=== PATIENT | female | born 1995 | race Caucasian/White ===

== ENCOUNTER → 2020-02-08 10:02 | Outpatient (BNVA) | payer OTHER, SELFPAY | PROVIDERS: Family Provider Family Medicine; PCP Family Medicine; Visit Provider Nurse Practitioner Family | DX: Z11.59 Encounter for screening for other viral diseases (principal) | CPT/HCPCS: 87635 ==

== ENCOUNTER → 2020-05-15 13:27 | Outpatient (BNVA) | payer OTHER, SELFPAY | PROVIDERS: Family Provider Family Medicine; Visit Provider Obstetrics & Gynecology | DX: Z32.01 Encounter for pregnancy test, result positive (principal) | CPT/HCPCS: 81025 ==

== ENCOUNTER → 2020-06-27 11:12 | Outpatient (BNVA) | payer OTHER, SELFPAY | PROVIDERS: Family Provider Family Medicine; Visit Provider Obstetrics & Gynecology | DX: O21.9 Vomiting of pregnancy, unspecified (principal); O99.210 Obesity complicating pregnancy, unspecified trimester; E66.9 Obesity, unspecified; Z3A.00 Weeks of gestation of pregnancy not specified | CPT/HCPCS: 80307; 82950; 84315; 84443; 85027; 86592; 86762; 86803; 86850; 86900; 87077; 87086; 87184; 87340; 87491; 87591; 87806; 88175 ==

== ENCOUNTER 2020-08-18 13:54 | Outpatient (CLI) | payer OTHER, SELFPAY ==
[2020-08-18] VITALS (9 sets, daily range): BP systolic 118–167; BP diastolic 72–94; PULSE 74–97; RESP 18; TEMP 36.7; BMI 42.0
--- NOTE | 2020-08-18 14:18 | US_ITS ---
WS: [id number] ULTRASOUND EARLY TECHNIQUE: Transabdominal sonography of the pelvis was performed. CLINICAL INFORMATION: cervical length LMP: 03/29/2020 Beta hCG: Unknown. COMPARISON: August 17, 2020 FINDINGS: Cervix is open and dilated today. This is progressed since yesterday. Dilated internal cerv ical os measures 1.9 CM in width. Dilated endocervical canal measures 4.9 cm in width. Single live intrauterine gestation with transverse presentation US/US OB limited [id number] IMPRESSION: 1. Progression of the cervical dilatation today with opening of the internal c ervical os and significant dilatation of the endocervical canal. 2. Single live intrauterine gestation with transverse presentation.
--- NOTE | 2020-08-18 15:57 | P.HP_ITS ---
Providers/Chief Complaint Chief Complaint: Abdominal pain HPI RESEARCH AND DEVELOPMENT MANAGER History of Present Illness Neelima Ramirez is a 25 year old G1Po female at 20 2/7 weeks who presents for feeling a bulge in her vagina when she used the bathroom. She cam immediately to the hospital. She had an ultrasound which showed her cervix to be dilated to 2 internally and 5 externally with a funneled cervix. Her has only been complicated by morbid obesity. She had an ultrasound yesterday and she was not dilated. Present Details : 1 Para: 0 Review of Systems General: Reports: 10 or more systems reviewed and unremarkable except in HPI and below Medications/Allergies Home Medications Medication Instructions Recorded Confirmed Last Taken Type prenat.vits,darling,mig-bupm-snodx 1 tab PO DAILY 05/26/20 07/26/20 Unknown History famotidine 20 mg tablet 20 mg PO DAILY PRN 06/27/20 07/26/20 Unknown History doxylamine 10 mg-pyridoxine (vit 2 tab PO DAILY #60 tab 07/03/20 07/26/20 Unknown Rx B6) 10 mg tablet,delayed release Allergies Allergy/AdvReac Type Severity Reaction Status Date / Time No Known Allergies Allergy Verified 07/26/20 12:43 PFSH RESEARCH AND DEVELOPMENT MANAGER PFSH: Medical History No pertinent past medical history Denies diabetes, asthma, hypertension, seizures, DVT/PE PCP: Dr. Escalona Surgical History History of surgery on arm (~2002) 2002---right arm fracture Family History Grandmother Breast cancer Maternal--- dx age late 60's Diabetes Paternal Hypertension Paternal Grandfather Diabetes Paternal Heart disease Paternal Hypertension Paternal Denies family history of Colon cancer Ovarian cancer Uterine cancer Thyroid disease Stroke History History History 1 Term Miscarriages/Ectopic Living Children Care PAMELLA Calculator Estimated Delivery Date Method Current WG Current Estimate 01/03/21 LMP (Certain) 20w 2d Other Estimates 01/07/21 Ultrasound #1 19w 5d Expected Delivery Route/Plan vaginal Specific Issues/Plans * Obesity- BMI 43.8%---prepregnancy Vitals/I&O/Wt Last Vital Signs Temp 98.1 F 08/18/20 14:13 Pulse 90 08/18/20 15:53 Resp 18 08/18/20 14:18 BP 151/75 08/18/20 15:53 Weight last 48 hrs Weight 276 lb 7.613 oz Physical Exam Const: COMMON NORMALS: no acute distress, patient oriented x3, no limitations, alert and well nourished GENERAL APPEARANCE: cooperative, comfortable, well kempt, well developed and anxious ORIENTATION/CONSCIOUSNESS: Yes awake, Yes oriented to person, Yes oriented to place and Yes oriented to time Neck/C-Spine: COMMON NORMALS: full ROM and supple Resp: COMMON NORMALS: normal respiratory effort and No retractions EFFORT & INSPECTION: Yes able to speak in complete sentences GI: COMMON NORMALS: Soft to palpation and non-tender Extremity: COMMON NORMALS: no clubbing, cyanosis or edema A&P Assessment and plan (1) Incompetent cervix during second trimester, antepartum: Plan is to transfer her to [facility] in [place] for a cerclage. She is currently placed in trendelenberg with a boggs catheter. Status: Acute Attestations Medical Necessity Statement*: The patient is admitted only as a transfer patient to tertiary hospital Coding Level of Care Code Acute In Home Baby Sitter for Georges Bedolla Diagnoses Incompetent cervix during second trimester, antepartum O34.32
--- NOTE | 2020-08-18 15:57 | PC.NURSE ---
1515 Patient placed in trendelenburg position at this time. Dr Tomlin at bedside speaking with patient and patients .
[2020-08-18] MEDS: dextrose 5%-lactated ringers 1,000 ML 125 ML IV (16:13)
--- NOTE | 2020-08-18 16:14 | PM.DCS ---
Discharge Providers Date of Admission: 08/18/20 Date of Discharge: August 18, 2020 Attending Provider at Discharge: Joanna Tomlin MD Diagnoses at Discharge Discharge Diagnosis (1) Incompetent cervix during second trimester, antepartum: Status: Acute Reason for Visit Reason for Visit: Abdominal pain Hospital Course Hospital Course The patient was admitted from triage for transfer to [facility] in [place] for incompetent cervix. The patient was found on exam to have 2 cm internal os and 5 cm outer os. She was placed in trendelenberg, boggs catheter was placed and she was transferred by air to hopefully get a cerclage as soon as possible. She currently has intact bag of water and an active fetus. Discharge Data Data Completed and Pending: Completed Studies During Hospitalization Category Date Time Status US OB limited [id number] Routine Ultrasound 08/18/20 14:18 Completed Vitals: Last Vital Signs Temp 98.1 F 08/18/20 14:13 Pulse 90 08/18/20 15:53 Resp 18 08/18/20 14:18 BP 151/75 08/18/20 15:53 Discharge Plan Discharge Patient Disposition: Home Prescriptions: No Action famotidine [Pepcid] 20 mg tablet 20 mg PO DAILY PRNRF: 0 doxylamine-pyridoxine (vit B6) [Diclegis] 10-10 mg tablet,delayed release (DR/EC) 2 tab PO DAILY Qty: 60 RF: 0 prenat.vits,darling,mnr-niip-grjef Tablet 1 tab PO DAILY RF: 0 Discharge Attestations Time Spent in Discharge Care*: less than 30 min Quality Metrics Clinical Quality Measures During this hospital stay, did patient experience: None Coding Level of Care Code Acute Chg FW DC note Diagnoses Incompetent cervix during second trimester, antepartum O34.32
--- NOTE | 2020-08-18 16:51 | PC.NURSE ---
4671 Patient reports feeling wetness, Dr Tomlin was still on floor at this time. She did spec exam and was able to see membranes still intact at this time, plan is to still proceed with air transfer.
--- NOTE | 2020-08-18 16:52 | PC.NURSE ---
9291 Air evac at bedside, report was given, care transferred at this time
--- NOTE | 2020-08-18 16:53 | PC.NURSE ---
patient transferred to [facility] at this time
== END 2020-08-18 16:50 | disposition home or self-care (01) ==
LOC: OPOB 14:04 → OBGYN 14:05
PROVIDERS: Family Provider Family Medicine; Visit Provider Obstetrics & Gynecology
DX: O34.32 Maternal care for cervical incompetence, second trimester (principal); Z3A.20 20 weeks gestation of pregnancy
CPT/HCPCS: 51702; 76815; 99211

== ENCOUNTER → 2021-10-05 08:04 | Outpatient (BNVA) | payer OTHER, SELFPAY | PROVIDERS: Family Provider Family Medicine; Visit Provider Obstetrics & Gynecology | DX: N97.9 Female infertility, unspecified (principal) | CPT/HCPCS: 83520; 84144 ==

== ENCOUNTER → 2021-10-12 10:52 | Outpatient (BNVA) | payer OTHER, SELFPAY | PROVIDERS: Family Provider Family Medicine; Visit Provider Obstetrics & Gynecology | DX: N97.9 Female infertility, unspecified (principal) | CPT/HCPCS: 84144 ==

== ENCOUNTER 2021-10-23 07:44 | Outpatient (CLI) | payer OTHER, SELFPAY ==
--- NOTE | 2021-10-23 08:00 | FL_ITS ---
WS: [id number] HYSTEROGRAM PERFORMED UNDER FLUOROSCOPY HISTORY: N97.9 - Female infertility, unspecified. FLUOROSCOPY TIME: 0.6 minutes. # of spot films: 4. Cannulization of the cervix performed by Dr. Perez. Good contrast opacification of the uterine body. There is immediate filling and spillage from the RIGHT fallopian tube. There is an abrupt terminatio n of the proximal LEFT fallopian tube which fills with contrast. Large amount of contrast extravasation into the peritoneal cavity from the RIGHT fallopian tube. FL/FL hysterosalpingography [id number] IMPRESSION: 1. No contrast opacification or spillage from the LEFT fallopian tube. Strictu re versus spasm causing the obstruction. 2. Widely patent RIGHT fallopian tube.
[2021-10-23] MEDS: iohexol 240 mg/mL 50 mL Btl INTRA-URET (08:39)
--- NOTE | 2021-10-23 12:12 | PM.ACPR ---
Procedure/Consent Procedure Narrative: Radiologic procedure Date of procedure: 10/23/2021 Date of dictation: 10/23/2021 Procedural diagnosis: Infertility Procedure done: Placement of hysterosalpingogram catheter Physician: Dr. Robby Perez Anesthesia: None Indication: To assess patency of fallopian tubes Complications: None, patient tolerated the procedure well PROCEDURE: The procedure was explained to the patient and verbal consent provided. Sterile speculum was placed in the vagina and the cervix was prepped with Betadine. The cervix was grasped with a single-tooth tenaculum. Using Omnipaque dye, the HSG catheter was primed. The catheter was inserted into the cervix and the speculum was removed. Fluoroscopy was performed by the radiologist. Omnipaque dye was injected into the endometrial cavity with normal filling of the cavity. Immediate spill was noted from the right tube. No spill was noted from the left tube. The tenaculum and catheter were removed. Patient tolerated the procedure well. Please see separate radiologist report for final interpretation. Followup appointment: She is to followup at her next scheduled appointment
== END 2021-10-23 07:45 | disposition home or self-care (01) ==
LOC: RAD 07:46
PROVIDERS: Visit Provider Obstetrics & Gynecology
DX: N97.9 Female infertility, unspecified (principal)
CPT/HCPCS: 74740

== ENCOUNTER → 2021-11-06 08:28 | Outpatient (BNVA) | payer OTHER, SELFPAY | PROVIDERS: Visit Provider Obstetrics & Gynecology | DX: N97.9 Female infertility, unspecified (principal) | CPT/HCPCS: 84144 ==

== ENCOUNTER → 2021-11-15 12:03 | Outpatient (BNVA) | payer OTHER, SELFPAY | PROVIDERS: Visit Provider Obstetrics & Gynecology | DX: Z32.01 Encounter for pregnancy test, result positive (principal) | CPT/HCPCS: 84702 ==

== ENCOUNTER → 2021-11-21 08:30 | Outpatient (BNVA) | payer OTHER, SELFPAY | PROVIDERS: Visit Provider Obstetrics & Gynecology | DX: Z34.90 Encounter for supervision of normal pregnancy, unspecified, unspecified trimester (principal) | CPT/HCPCS: 84702 ==

== ENCOUNTER 2022-07-07 12:53 | Emergency (ER) | payer OTHER, SELFPAY ==
[2022-07-07] VITALS (13 sets, daily range): BP systolic 125–160; BP diastolic 63–92; PULSE 56–95; RESP 14–20; TEMP 36.7; O2SAT 94–100
--- NOTE | 2022-07-07 13:25 | ED_ITS ---
HPI - General Adult General: Chief complaint: General Medical Stated complaint: high B/P 2 day post partom Time Seen by Provider: 07/07/22 13:12 History of Present Illness: This 27-year-old female who recently delivered a baby at 37 weeks presents to the ER for evaluation of high blood pressure. She was induced 3 days ago due to IUGR, SGA, being overweight and high blood pressure. Following a successful vaginal delivery, she was discharged from the hospital yesterday. She reports that she was hypertensive towards the end of the but she was not started on any medications. She was not discharged home with an antihypertensive either. Yesterday she purchased a home blood pressure monitor and noticed that her blood pressure was elevated. When she checked it again this morning it was 166/103. This prompted her to come to the ER for evaluation. Currently her blood pressure is 146/92. Patient admitted to having a history of anxiety and she has been anxious throughout this delivery process. She reports some mild ankle edema but has no shortness of breath or chest pain. Her motor pool driver is Dr. Hickey at [facility]. Associated symptoms: Reports palpitations; Deny chest pain or headache(s) Review of Systems Const: Denies: chills, body aches or change in appetite Eyes: Denies: change in vision or eye discharge ENMT: Denies: throat pain, dental pain or nasal discharge Card: Reports: palpitations; Denies: chest pain or lightheadedness : Denies: dysuria Musc: Reports: other (Mild pedal edema); Denies: neck pain or back pain Neuro: Denies: headache(s) or weakness in extremities Psych: Denies: depression Gerald/Lymph: Denies: easy bruising All/Imm: Denies: urticaria, tongue swelling or facial swelling PFSH ED PFSH: Medical History No pertinent past medical history Denies diabetes, asthma, hypertension, seizures, DVT/PE PCP: Dr. Escalona Surgical History History of surgery on arm (~2002) 2002---right arm fracture Family History Grandmother Breast cancer Maternal--- dx age late 60's Diabetes Paternal Hypertension Paternal Grandfather Diabetes Paternal Heart disease Paternal Hypertension Paternal Denies family history of Colon cancer Ovarian cancer Uterine cancer Thyroid disease Stroke Physical Exam Const: COMMON NORMALS: no acute distress, patient oriented x3, no limitations and alert HENMT: COMMON NORMALS: normocephalic HEAD & SCALP: normocephalic Eye: COMMON NORMALS: EOMs intact bilaterally Neck/C-Spine: COMMON NORMALS: full ROM and supple Chest: COMMONS NORMALS: normal inspection of the chest Resp: COMMON NORMALS: normal respiratory effort, No retractions, No use of accessory muscles and clear to auscultation bilaterally AUSCULTATION: clear to auscultation bilaterally Cardio: COMMON NORMALS: regular rate, regular rhythm and No murmurs present (Cardio) RATE: regular rate RHYTHM: regular rhythm GI: COMMON NORMALS: Normal to inspection, nondistended, normoactive bowel sounds present and non-tender : COMMON NORMALS: Yes no CVA tenderness BLADDER/KIDNEY EXAM: Yes no CVA tenderness Back/Pelvis: COMMON NORMALS: no CVA tenderness and no thoracic nor lumbar tenderness Extremity: GENERAL: Yes normal exam except as noted and Yes other findings (Mild pedal edema) Neuro: COMMON NORMALS: patient oriented x3 and no focal motor deficits SENSORIUM/ORIENTATION: Yes alert Psych: COMMON NORMALS: mental status grossly normal and cooperative Course Vital Signs: Vital signs: Vital Signs Temperature 98.0 F 07/07/22 12:57 Pulse Rate 87 07/07/22 17:18 Respiratory Rate 20 H 07/07/22 17:18 Blood Pressure 130/74 07/07/22 17:18 Pulse Oximetry 94 07/07/22 17:18 Oxygen Delivery Me thod 07/07/22 14:01 [facility] [place] - General Adult Medical Decision Making Medical decision making: History as above. Patient's blood pressure normalized while she was here in the ER. She was calm at the time of discharge. It is possible that her anxiety is partly fueling her increased blood pressure. At this time, she does not want to take any antihypertensives. She would prefer to discuss with her motor pool driver first. There is nothing to suggest that she is having preeclampsia/eclampsia at this time. She was advised to return if she develops any new concerning symptoms. Lab Data 07/07/22 14:30 07/07/22 14:11 Radiology Impressions Chest X-Ray 07/07/22 13:40 IMPRESSION: No acute findings. Laboratory Results WBC 10.7 10^3/uL (4.0-10.0) H 07/07/22 14:30 Corrected WBC Cancelled 07/07/22 14:11 RBC 3.77 10^6/uL (4.1-5.3) L 07/07/22 14:30 Hgb 10.5 g/dL (11.5-15.3) L 07/07/22 14:30 Hct 32.7 % (37.0-47.0) L 07/07/22 14:30 MCV 86.7 fl (81-99) 07/07/22 14:30 MCH 27.9 pg (28.0-34.0) L 07/07/22 14:30 MCHC 32.1 g/dL (30.0-36.0) 07/07/22 14:30 RDW 12.8 % (12.1-15.1) 07/07/22 14:30 Plt Count 279 10^3/cmm (130-400) 07/07/22 14:30 MPV 11.2 fL (7.4-10.4) H 07/07/22 14:30 Gran % Cancelled 07/07/22 14:11 Neut % (Auto) 76.1 % 07/07/22 14:30 Lymph % (Auto) 14.7 % 07/07/22 14:30 Russell % (Auto) 5.2 % 07/07/22 14:30 Eos % (Auto) 2.7 % 07/07/22 14:30 Baso % (Auto) 0.3 % 07/07/22 14:30 Neut # (Auto) 8.16 10^3/uL (1.8-7.7) H 07/07/22 14:30 Lymph # (Auto) 1.6 10^3/uL (0.8-4.8) 07/07/22 14:30 Russell # (Auto) 0.6 10^3/uL (0.2-0.9) 07/07/22 14:30 Eos # (Auto) 0.3 10^3/uL (0.0-0.8) 07/07/22 14:30 Baso # (Auto) 0.0 10^3/uL (0.0-0.1) 07/07/22 14:30 Absolute Gran (auto) Cancelled 07/07/22 14:11 Nucleated RBC % (auto) 0 % 07/07/22 14:30 Nucleated RBCs # 0.0 /100WBC 07/07/22 14:30 Sodium 141 mmol/L (136-145) 07/07/22 14:11 Potassium 3.7 mmol/L (3.5-5.1) 07/07/22 14:11 Chloride 109 mmol/L (98-107) H 07/07/22 14:11 Carbon Dioxide 17 mmol/L (22-29) L 07/07/22 14:11 Anion Gap 18.7 (5-19) 07/07/22 14:11 BUN 6 mg/dL (6-20) 07/07/22 14:11 Creatinine 0.6 mg/dL (0.5-0.9) 07/07/22 14:11 GFR Calculation 119.9 mL/min (90-130) 07/07/22 14:11 Glucose 76 mg/dL (65-115) 07/07/22 14:11 Calculated Osmolality 288 mOsm/kg (285-295) 07/07/22 14:11 Calcium 8.7 mg/dL (8.5-10.5) 07/07/22 14:11 Total Bilirubin 0.3 mg/dL (0.15-1.2) 07/07/22 14:11 AST 16 U/L (0-32) 07/07/22 14:11 ALT 13 U/L (0-33) 07/07/22 14:11 Alkaline Phosphatase 90 U/L (35-105) 07/07/22 14:11 Troponin T Gen 5 ng/L 6 ng/L (0-10) 07/07/22 14:11 Total Protein 6.0 g/dL (6.6-8.7) L 07/07/22 14:11 Albumin 3.0 g/dL (3.5-5.2) L 07/07/22 14:11 Globulin 3.0 g/dL (1.3-4.6) 07/07/22 14:11 Urine Color Dark yellow (Yellow) 07/07/22 13:55 Urine Appearance Hazy (CLEAR) A 07/07/22 13:55 Urine pH 6 (5-7) 07/07/22 13:55 Ur Specific [place] 1.015 (1.005-1.030) 07/07/22 13:55 Urine Protein Trace (Negative) 07/07/22 13:55 Urine Glucose (UA) Norm (Normal) 07/07/22 13:55 Urine Ketones 2+ (Negative) H 07/07/22 13:55 Urine Blood 3+ (Negative) H 07/07/22 13:55 Urine Nitrate Negative (Negative) 07/07/22 13:55 Urine Bilirubin Neg (Negative) 07/07/22 13:55 Urine Urobilinogen Norm mg/dL (Negative) 07/07/22 13:55 Ur Leukocyte Esterase 2+ (Negative) H 07/07/22 13:55 Urine RBC 15-25 /hpf (0-2) H 07/07/22 13:55 Urine WBC 25-40 /hpf (0-5) H 07/07/22 13:55 Ur Squamous Epith Cells 5-10 /hpf (0-5) H 07/07/22 13:55 Amorphous Sediment Not Reportable 07/07/22 13:55 Urine Bacteria 1+ /hpf (NONE) H 07/07/22 13:55 Urine Mucus Trace /hpf 07/07/22 13:55 Discharge Plan Discharge Patient Disposition: Home Clinical Impression: Hypertension Condition: Stable Prescriptions: No Action Tylenol Ex Str Rapid Release 500 mg Tablet 1,000 mg PO Q6H PRN (Reason: Pain) ibuprofen 200 mg Tablet 400 mg PO Q6H PRN (Reason: Pain) Gummies 400 mcg-35 mg- 25 mg-5 mg Tablet,Chewable 2 tab PO DAILY Discharge Orders: Discharge ED (Routine); Ordered 07/07/22 Ordered By: Josue Perez Discharge Diet: Usual diet Discharge Activity: Resume usual activity Patient Instructions: Opioid Safety, Pain Management Activity Restrictions/Additional Instructions: Rest and maintain adequate fluid intake. Closely monitor your blood pressure and keep a log of the readings. Call your motor pool driver's office to schedule a follow-up appointment. Return with new or worsening symptoms. Coding Level of Care Code ED Area Representative for Georges Bedolla
--- NOTE | 2022-07-07 13:40 | XRR_ITS ---
PROCEDURE INFORMATION: Exam: XR Chest Exam date and time: 07/07/2022 1:49 PM Age: 27 years old Clinical indication: Other: HTN; Additional info: Hypertension TECHNIQUE: Imaging protocol: Radiologic exam of the chest. Views: 1 view. COMPARISON: CT kidney stone [id number] 06/27/2016 12:37 PM FINDINGS: Lungs: No consolidation. Pleural spaces: Unremarkable. No pleural effusion. No pneumothorax. Heart/Mediastinum: No cardiomegaly. Bones/joints: No acute findings. XR/XR chest 1V portable [id number] IMPRESSION: No acute findings.
--- NOTE | 2022-07-07 13:41 | ECG_ITS ---
[facility] Test Date: 2022-07-07 Pat Name: Neelima Ramirez Department: Room: Gender: Female Acupressurist: : 1995 Requested By: Josue Castro Order Number: [id number] Andreas MD: Lola Carpenter M.D. Measurements Intervals [place] Rate: 86 P: 38 MN: 163 QRS: 68 QRSD: 83 T: 36 QT: 349 QTc: 419 Interpretive Statements SINUS RHYTHM No previous ECG available for comparison Electronically Signed On 07-07-2022 19:41:03 CDT by Lola Carpenter M.D. [id number]
[2022-07-07 14:22] LABS: Urine Appearance Hazy (CLEAR); Urine Color Dark Yellow (Yellow)
[2022-07-07 14:23] LABS: Add Urine Microscopic? YES; Bacteria Urine 1+ /hpf; Bilirubin Urine Neg (Negative); Blood Urine 3+ (Negative); Glucose Urine UA Norm (Normal); Ketones Urine 2+ (Negative); Leukocyte Esterase Urine 2+ (Negative); Nitrate Urine Negative (Negative); Protein Urine Trace (Negative); RBC Urine 15-25 /hpf (0-2); Specific Gravity, Urine 1.015 (1.005-1.030); Urobilinogen Urine Norm (Negative); WBC Urine 25-40 /hpf (0-5); pH Urine 6 (5-7)
[2022-07-07 14:24] LABS: Add Urine Culture? Yes; Mucus Urine TRACE /hpf
[2022-07-07 14:36] LABS: Basophils % 0.3 %; Eosinophils # 0.3 10^3/uL (0.0-0.8); Eosinophils % 2.7 %; Hematocrit 32.7 % (37.0-47.0); Hemoglobin 10.5 g/dL (11.5-15.3); Lymphocytes # 1.6 10^3/uL (0.8-4.8); Lymphocytes % 14.7 %; Mean Corpuscular HGB Conc 32.1 g/dL (30.0-36.0); Mean Corpuscular Hemoglobin 27.9 pg (28.0-34.0); Mean Corpuscular Volume 86.7 fl (81-99); Mean Platelet Volume 11.2 fL (7.4-10.4); Monocytes # 0.6 10^3/uL (0.2-0.9); Monocytes % 5.2 %; Neutrophils # 8.16 10^3/uL (1.8-7.7); Neutrophils % 76.1 %; Nucleated Red Blood Cells % 0 %; Platelet Count 279 10^3/cmm (130-400); Red Blood Count 3.77 10^6/uL (4.1-5.3); Red Cell Distribution Width 12.8 % (12.1-15.1); White Blood Count 10.7 10^3/uL (4.0-10.0)
[2022-07-07 14:44] LABS: Alanine Aminotransferase 13 U/L (0-33); Alkaline Phosphatase 90 U/L (35-105); Anion Gap 18.7 (5-19); Aspartate Amino Transferase 16 U/L (0-32); Blood Urea Nitrogen 6 mg/dL (6-20); Calcium 8.7 mg/dL (8.5-10.5); Carbon Dioxide 17 mmol/L (22-29); Chloride 109 mmol/L (98-107); Glomerular Filtration Rate 119.9 mL/min (90-130); Glucose 76 mg/dL (65-115); Osmolality Calculated 288 mOsm/kg (285-295); Potassium 3.7 mmol/L (3.5-5.1); Sodium 141 mmol/L (136-145); Total Bilirubin 0.3 mg/dL (0.15-1.2)
[2022-07-07 14:45] LABS: Troponin T (5th) Once 6 ng/L (0-10)
--- NOTE | 2022-07-09 16:14 | DCPLANNER ---
TCM called patient due to no primary care physician - patient declines at this time
== END 2022-07-07 17:19 | disposition home or self-care (01) ==
PROVIDERS: Emergency Provider Family Medicine
DX: O16.5 Unspecified maternal hypertension, complicating the puerperium (principal)
CPT/HCPCS: 36415; 71045; 80053; 81001; 84484; 85025; 87077; 87086; 87186; 93005; 99285